=== PATIENT | male | born 1995 | race Caucasian/White ===

== ENCOUNTER 2020-09-04 02:41 | Emergency (ER) ==
--- NOTE | 2020-09-04 04:42 | RADIOLOGY REPORT (SQ) ---
Left wrist radiographs: 09/04/2020 3:40 AM [employer] TECHNIQUE: AP, lateral, oblique images of the left wrist were obtained. COMPARISON: None available HISTORY: 24-year-old patient with left wrist pain . FINDINGS: There are no findings to suggest an acute fracture or subluxation. The soft tissues are unremarkable. The scapholunate interval is within normal limits. The carpal arcs appear to be intact. IMPRESSION: There are no findings to suggest an acute fracture or subluxation of the left wrist.
[2020-09-04] MEDS ORDERED: IBUPROFEN 600 MG TABLET PO ONE (05:50)
[2020-09-04] MEDS ORDERED: IBUPROFEN 600 MG TABLET ONE (05:51)
== END 2020-09-04 05:55 | disposition left against medical advice (07) ==
LOC: ER 02:41
DX: Z53.21 Procedure and treatment not carried out due to patient leaving prior to being seen by health care provider (principal); M25.539 Pain in unspecified wrist

== ENCOUNTER 2020-11-15 14:39 | Emergency (ER) | payer BC ==
[2020-11-15] MEDS ORDERED: RINGERS SOLUTION,LACTATED 1,000 ML IV ONE (15:26)
--- NOTE | 2020-11-15 15:29 | ER Document Report ---
ED Medical Screen (RME) - General Chief Complaint: Drug Abuse Stated Complaint: DETOX Time Seen by Provider: 11/15/20 15:19 Mode of Arrival: Ambulatory Information source: Patient, Friend Notes: HPI; 24-year-old male past medical history significant for drug use of fentanyl presents to the emergency room complaining of chest pain, shortness of breath, joint pain and tachycardia. Per his fiance and she has been monitoring his vital signs and noticed that he had an elevated heart rate today. States he was using fentanyl daily and decided to 3 days ago to stop without going to detox PE: Alert and oriented x3. Lungs: Clear to auscultation no rales, rhonchi, wheezes. Heart: Tachycardic without murmurs, rubs, gallops I have greeted and performed a rapid initial assessment of this patient. A comprehensive ED assessment and evaluation of the patient, analysis of test results and completion of the medical decision making process will be conducted by additional ED providers. I have specifically instructed the patient or family members with the patient to immediately return to any nursing staff should anything change in the patient's condition or with their chief complaint. TRAVEL OUTSIDE OF THE [place] IN LAST 30 DAYS: No - Related Data Allergies/Adverse Reactions: No Known Allergies Allergy (Unverified 09/04/20 03:01) Physical Exam - Vital signs Vitals: Temp Pulse Resp BP Pulse Ox 98.1 F 146 H 20 119/84 98 11/15/20 14:50 11/15/20 14:50 11/15/20 14:50 11/15/20 14:50 11/15/20 14:50 Course - Vital Signs Vital signs: Temp Pulse Resp BP Pulse Ox 98.1 F 146 H 20 119/84 98 11/15/20 14:50 11/15/20 14:50 11/15/20 14:50 11/15/20 14:50 11/15/20 14:50
[2020-11-15 15:51] LABS: ABSOLUTE LYMPHOCYTES (AUTO) 1.5 10^3/uL (0.5-4.7); ABSOLUTE MONOCYTES (AUTO) 0.6 10^3/uL (0.1-1.4); BASOPHILS % (AUTO) 0.5 % (0-2); EOSINOPHILS % (AUTO) 0.5 % (0-6); HEMATOCRIT 44.5 % (37.9-51.0); HEMOGLOBIN 15.3 g/dL (13.5-17.0); MEAN CORPUSCULAR HEMOGLOBIN 31.5 pg (27.0-33.4); MEAN CORPUSCULAR HGB CONC 34.4 g/dL (32.0-36.0); MEAN CORPUSCULAR VOLUME 91 fl (80-97); MONOCYTES % (AUTO) 6.9 % (3-13); PLATELET COUNT 306 10^3/uL (150-450); RED BLOOD COUNT 4.87 10^6/uL (4.35-5.55); RED CELL DISTRIBUTION WIDTH 13.5 % (11.5-14.0); SEGMENTED NEUTROPHILS % (AUTO) 76.1 % (42-78); TOTAL CELLS COUNTED % (AUTO) 100 %; WHITE BLOOD COUNT 9.1 10^3/uL (4.0-10.5)
--- NOTE | 2020-11-15 15:59 | RADIOLOGY REPORT (SQ) ---
EXAM DESCRIPTION: CHEST 2 VIEWS IMAGES COMPLETED DATE/TIME: 11/15/2020 3:51 pm REASON FOR STUDY: chest pain COMPARISON: None. EXAM PARAMETERS: NUMBER OF VIEWS: Two views. TECHNIQUE: PA and lateral views of the chest were obtained. RADIATION DOSE: NA LIMITATIONS: None. FINDINGS: LUNGS AND PLEURA: No consolidation, pleural effusion or pneumothorax. MEDIASTINUM AND HILAR STRUCTURES: No mediastinal or hilar contour abnormality. HEART AND VASCULAR STRUCTURES: The cardiac silhouette and pulmonary vasculature are within normal farias its. BONES: No acute findings. HARDWARE: None in the chest. OTHER: No other finding. IMPRESSION: No acute cardiopulmonary process. TECHNICAL DOCUMENTATION: JOB ID: [id number] 2010 [employer]- All Rights Reserved Reading location - IP/workstation name: [email or web address]
[2020-11-15 16:17] LABS: ALBUMIN 4.4 g/dL (3.5-5.0); ALKALINE PHOSPHATASE 83 U/L (38-126); ANION GAP 9 (5-19); ASPARTATE AMINO TRANSFERASE 25 U/L (17-59); BILIRUBIN,DIRECT 0.2 mg/dL (0.0-0.4); BILIRUBIN,TOTAL 0.3 mg/dL (0.2-1.3); BLOOD UREA NITROGEN 12 mg/dL (7-20); CALCIUM 9.6 mg/dL (8.4-10.2); CARBON DIOXIDE 24 mmol/L (22-30); CHLORIDE 105 mmol/L (98-107); GLUCOSE 116 mg/dL (75-110); POTASSIUM 5.1 mmol/L (3.6-5.0)
[2020-11-15 16:22] LABS: ACETAMINOPHEN < 10 ug/mL (10-30); ALCOHOL < 10 mg/dL (NONE DETECTED); SALICYLATE < 1.0 mg/dL (2.0-20.0)
--- NOTE | 2020-11-15 16:44 | EKG REPORT ---
SEVERITY:- BORDERLINE ECG - SINUS TACHYCARDIA PROBABLE LEFT ATRIAL ABNORMALITY MINIMAL ST DEPRESSION, INFERIOR LEADS : Confirmed by: Yvon Glover MD 15-Nov-2020 16:44:02
[2020-11-15 17:46] LABS: APPEARANCE,URINE CLEAR; BILIRUBIN,URINE NEGATIVE (NEGATIVE); COLOR,URINE YELLOW; GLUCOSE, URINE NEGATIVE (NEGATIVE); KETONES,URINE NEGATIVE (NEGATIVE); LEUKOCYTE ESTERASE,URINE NEGATIVE (NEGATIVE); NITRITE,URINE NEGATIVE (NEGATIVE); PROTEIN,URINE NEGATIVE (NEGATIVE); URINE SPECIFIC GRAVITY 1.011; UROBILINOGEN,URINE NEGATIVE mg/dL (<2.0)
[2020-11-15 17:58] LABS: URINE BARBITURATES SCREEN NEGATIVE; URINE COCAINE SCREEN NEGATIVE; URINE PHENCYCLIDINE SCREEN NEGATIVE
[2020-11-15 17:59] LABS: URINE BENZODIAZEPINES SCREEN UNCONFIRMED POSITIVE; URINE MARIJUANA (THC) SCREEN UNCONFIRMED POSITIVE; URINE METHADONE SCREEN UNCONFIRMED POSITIVE
--- NOTE | 2020-11-15 18:09 | ER Document Report ---
Entered by CAROL HERNANDEZ SCRIBE 11/15/20 1734 Acting as scribe for:JOCY TAYLOR DO ED Substance Abuse / Acc. OD - General Chief Complaint: Drug Abuse Stated Complaint: DETOX Time Seen by Provider: 11/15/20 15:19 Mode of Arrival: Ambulatory Information source: Patient Notes: This 24-year-old male patient presents to the emergency department today with complaints of opiate withdrawal. Patient snorts fentanyl and he "stopped cold turkey" 2 to 3 days ago. He denies any use of methamphetamine, marijuana, heroin, or any other illicit substances. He denies HI/SI, chest pain, fevers, chills, vomiting, diarrhea, or Covid 19 concerns. TRAVEL OUTSIDE OF THE [place] IN LAST 30 DAYS: No - Related Data Allergies/Adverse Reactions: No Known Allergies Allergy (Verified 11/15/20 16:03) Past Medical History - General Information source: Patient, Friend - Social History Smoking Status: Current Every Day Smoker Cigarette use (# per day): Yes Frequency of alcohol use: None Drug Abuse: Other Lives with: Spouse/Significant other Family History: Reviewed & Not Pertinent - Medical History Medical History: Negative Surgical Hx: Negative Review of Systems - Review of Systems Constitutional: See HPI, Other - Withdrawal from opiates EENT: No symptoms reported Cardiovascular: No symptoms reported Respiratory: No symptoms reported Gastrointestinal: No symptoms reported Genitourinary: No symptoms reported Male Genitourinary: No symptoms reported Musculoskeletal: No symptoms reported Skin: No symptoms reported Hematologic/Lymphatic: No symptoms reported Neurological/Psychological: No symptoms reported -: Yes All other systems reviewed and negative Physical Exam - Vital signs Vitals: Temp Pulse Resp BP Pulse Ox 98.1 F 146 H 20 119/84 98 11/15/20 14:50 11/15/20 14:50 11/15/20 14:50 11/15/20 14:50 11/15/20 14:50 - Notes Notes: Physical Exam: General: Alert, appears well. HEENT: Normocephalic. Atraumatic. PERRL. Extraocular movements intact. Oropharynx clear. Neck: Supple. Non-tender. Respiratory: No respiratory distress. Clear and equal breath sounds bilaterally. Cardiovascular: Regular rate and rhythm. Abdominal: Normal Inspection. Non-tender. No distension. Normal Bowel Sounds. Back: No gross abnormalities. Extremities: Moves all four extremities. Upper extremities: Normal inspection. Normal ROM. Lower extremities: Normal inspection. No edema. Normal ROM. Neurological: Normal cognition. AAOx4. Normal speech. Psychological: Normal affect. Normal Mood. Skin: Warm. Dry. Normal color. Course - Re-evaluation Re-evalutation: 11/15/20 18:04 MDM 24 year old male here with fiancee want to stop opiods - fentanyl - and denies SI or HI and has fiancee here for social support. I have enlisted the support of the behavioral health team here who will provide with local resources for opiod abuse. He, of course, may return here for any problems or any concerns. - Vital Signs Vital signs: Temp Pulse Resp BP Pulse Ox 98.3 F 97 22 H 122/87 H 100 11/15/20 18:50 11/15/20 18:50 11/15/20 18:50 11/15/20 18:50 11/15/20 18:50 - Laboratory Results Result Diagrams: 11/15/20 15:36 11/15/20 15:36 Laboratory Results Interpreted: 11/15/20 15:36 Potassium 5.1 H Glucose 116 H Salicylates < 1.0 L Acetaminophen < 10 L Critical Laboratory Results Reviewed: No Critical Results - Radiology Results Critical Radiology Results Reviewed: No Critical Results Discharge - Discharge Clinical Impression: H/O opioid abuse Condition: Stable Disposition: HOME, SELF-CARE Instructions: Narcotic Abuse (OM) Additional Instructions: Please use the resources provided by behavioral/ mental health. Please return here for any problems or any concerns including but not limited to thoughts of self harm or harming others. I personally performed the services described in the documentation, reviewed and edited the documentation which was dictated to the scribe in my presence, and it accurately records my words and actions.
[2020-11-15 18:51] VITALS: BP 122/87
== END 2020-11-15 18:50 | disposition home or self-care (01) ==
LOC: ER 14:39
DX: F19.10 Other psychoactive substance abuse, uncomplicated (principal); R07.9 Chest pain, unspecified; R06.02 Shortness of breath; R00.0 Tachycardia, unspecified; M25.50 Pain in unspecified joint; F17.210 Nicotine dependence, cigarettes, uncomplicated
CPT/HCPCS: 93005; 99285; 96360; 36415; 80307 ×4; 85025; 80053; 81001; 84484; 71046; 93010; J7120